=== PATIENT | male | born 1990 ===

== ENCOUNTER 2018-04-27 08:54 | Outpatient (CLI) | payer OTHER ==
[~2018-04-27] VITALS: Ht 165.1 cm; Wt 68.0 kg
== END 2018-04-27 10:22 | disposition home or self-care (01) ==
LOC: OFIC 805 08:54
DX: R09.81 Nasal congestion (principal); J30.89 Other allergic rhinitis; H65.192 Other acute nonsuppurative otitis media, left ear; H91.8X2 Other specified hearing loss, left ear